=== PATIENT | female | born 1985 | race Caucasian/White ===

== ENCOUNTER 2018-10-28 19:16 | Emergency (ER) | payer MEDICAID ==
[2018-10-28 20:15] VITALS: BMI 39.1
--- NOTE | 2018-10-28 21:01 | OBHP ---
Datetime: 10/28/2018 20:23 IP Adm Impression: Term, intrauterine IP Chief Complaint Other: Pelvic pain IP Admit Plan: Observation/Evaluation; Discharge home Admit Comment, IP Provider: 32 yo f 38.1 wk present to DOC due to pelvic pain and vaginal p ain that started 3 days ago. Pt state that she feel there is some discharge coming out but cant appre ciate any smell, denies vaginal bleed or watergush. Otherwise patient OBGYN is in [place] and not oropeza re if she is returning back and wish to stay here to deliver the baby. Pt state last time she saw her doctor he state that she had uncontrolled glucose but she never followed up for next visit. Otherwis e patient had no complication during this Allergy Shellfish PCP: PMH None PSH None FH: denies any disease OBGYN: 1nvd, 1 miscarriage Social denies smoke ETOH or drug use 20:41 Assessment and plan 32 yo f 38.1 wk present to DOC due to pelvic pain and vaginal pain that started 3 days ag o. No actue distress FHR reactive Abd very distended possible oversized baby vag exam + for white cheese cuttage like discharge, there is scarring around vaginal area, possibl e due to irritation due to scrubbing. Plan GBS U/S for estimated weight Send consent for record release Discussed with Dr. Lorrie Gambino PGY1 OB Hospitalist Addendum: 32 yo at 38+1 wks w/ EDC 11/10/2017 per pt who received care in [place], last appoint in beginning of 09/2018, reports that she had an elevated 1 hr glucola and never had 3 hr GTT done. Pt reports that she has gained about 70 lbs w/ this preg. Pt doesn't have her records from [place]. Pt reports that her first baby was about 6# and this baby feels much bigger. On exam; pt appears comfortable in bed, abd: large (baby seems large) GBS done. VE: intracr ural rash present, appears meng w/ small red blebs, spec: yellow curdled d/c. Pt signed authorizatio n for release of records. Pt given rx'd glucose monitor, lancets, strips and told to check her sugars and to return on Fri., 10/30/2018 for NSTand to review her sugars. Pt also sent for EFW. Explained the importance of f/u care. Rec that she check her sugars and f/u. Explained that a c/s may be recommended if the baby is very large. Pt rx'd mycolog ointment for vulvar rash and rec that she use 7 day Monistat for vaginal yeast infxn. (ES) Pelvic Type - PN: Not Done Extremities - PN: Normal Abdomen - PN: Normal Back - PN: Normal Breast - PN: Not Done Lungs - PN: Normal Heart - PN: Normal Thyroid - PN: Normal Neurologic - PN: Normal HEENT - PN: Normal General - PN: Normal FHR - Baseline A Provider: 150 Gestation - Est Wks by US: 38.1 Vital Signs Provider: Reviewed; Within Normal Limits NICHD Variability Prov Fetus A: Moderate 6-25bpm NICHD Accel Fetus A IP Provider: 15X15 FHR Category Provider Fetus A: Category I Genitourinary Exam: Normal DTRs - PN: Normal
[2018-10-29 02:13] VITALS: BP 117/86; PULSE 123; TEMP 98.1
--- NOTE | 2018-10-29 11:37 | US ---
Date of service: 10/28/2018 PROCEDURE: OB Pelvic Ultrasound HISTORY: estimated weight and presentation LMP: 02/03/2018 COMPARISON: None available. FINDINGS: UTERUS: Gestational sac: Single intrauterine fetus in cephalic presentation. BPD: 9.38 cm corresponding to 38 weeks and 1 day of gestational age HC: 33.99 cm corresponding to 39 weeks and 1 day of gestational age. AC: 35.09 cm corresponding to 39 weeks and 0 day of gestational age. FL: 7.27 cm corresponding to 37 weeks and 2 days of gestational age. Heart rate: 168 bpm. age (Ultrasound estimated): 38 weeks and 3 days of gestational age. Lisa-gestational hemorrhage: None. Date of delivery (Ultrasound estimated) : 11/08/2018 The estimated weight is 3517 grams +/- 527.5 2 grams. Placenta is anterior. CERVIX: Measures 4.3 cm. Long and closed. No cervical abnormality seen. RIGHT OVARY: Not visualized. LEFT OVARY: Not visualized. FREE FLUID: None. OTHER FINDINGS: None. IMPRESSION: Single live intrauterine fetus in cephalic presentation with mean gestational age of 38 weeks and 3 days. The estimated date of delivery by ultrasound is 11/08/2018. The ultrasound dates correspond with the clinical dates. The estimated weight is 3517 grams +/- 527.5 2 grams.
== END 2018-10-28 21:15 | disposition home or self-care (01) ==
LOC: H.EROB2 19:16
DX: O26.93 Pregnancy related conditions, unspecified, third trimester (principal); R10.2 Pelvic and perineal pain; Z3A.38 38 weeks gestation of pregnancy

== ENCOUNTER 2018-10-30 07:38 | Inpatient (IN) | payer MEDICAID ==
[2018-10-30 08:40] VITALS: BMI 37.8
--- NOTE | 2018-10-30 11:23 | US ---
Date of service: 10/30/2018 PROCEDURE: Limited obstetrical ultrasound examination and biophysical profile HISTORY: Noncompliant with prental care COMPARISON: 10/28/2018 TECHNIQUE: Transabdominal FINDINGS: There is a single live intrauterine gestation. presentation was not described at this time the heart rate is 154 beats per minute. A normal quantity of amniotic fluid is visualized. The BASILIO is 18.47 cm. A normal anterior placenta is identified. There is no evidence of placenta previa. The cervix is closed and measures 4.4 cm in length. biometry yields a gestational age by ultrasound of 37 weeks 4 days. The BERNARDO by ultrasound is 11/16/2018. The EFW is 3263 g. anatomy was not evaluated at this time. Limited biophysical profile examination yields a score of 8 out of 8. IMPRESSION: Single live intrauterine gestation of approximately 37 weeks 4 days. Anterior placenta. No previa. Cervix long and closed. Normal amniotic fluid volume. heart rate 154. Biophysical profile score 8 out of 8. EFW 3263 g.
[2018-10-30] MEDS: Lactated Ringer's 1,000 ML IV SCH ×2 (16:45→20:10)
--- NOTE | 2018-10-30 17:18 | OBADHP ---
Datetime: 10/30/2018 17:12 Admit Comment, IP Provider: 32 yo at 38+3 wks w/ EDC 11/10/2018 by LMP, c/w u/s who returns to DOC for NST/ BPP, has not see OB in [facility] 10/01/2018, had an elevated 1 hr glucola 162 on 09/08/2018. Pt never had a 3 hr GTT and never checked her sugars. Pt denies VALDES, vision changes, upper abdominal pain, and nausea/ vomiting. 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 Ling who recommended delivery. Wi ll start induction w/ cervidil. BP's mildly elevated. PT denies sx PEC. CBC, CMP and UA ordered. GBS still pending from 10/28/2018. FHT overall reassuring. Extremities - PN: Normal Abdomen - PN: Normal Back - PN: Normal Lungs - PN: Normal Heart - PN: Normal Neurologic - PN: Normal General - PN: Normal FHR - Baseline A Provider: 150's Membranes, Provider: Intact Contraction Comments Provider: None Vital Signs Provider: Reviewed IP Chief Complaint: evaluation NICHD Variability Prov Fetus A: Moderate 6-25bpm NICHD Accel Fetus A IP Provider: [id number] FHR Category Provider Fetus A: Category I NICHD Decel Fetus A IP Provider: None Dilatation, Provider: 0 Effacement, Provider: 0 Station, Provider: -3 Genitourinary Exam: Normal DTRs - PN: Normal EGA AdmitDate IP: 38.3 IP Adm Impression: Term, intrauterine IP Admit Plan: Admit to unit; Initiate labor induction protocol Datetime: 10/28/2018 20:23 IP Chief Complaint Other: Pelvic pain Pelvic Type - PN: Not Done Breast - PN: Not Done Thyroid - PN: Normal HEENT - PN: Normal Gestation - Est Wks by US: 38.1
[2018-10-30 17:35] LABS: ALB/GLOB RATIO 1.1 (1.0-2.1); ALBUMIN 3.6 g/dL (3.5-5.0); ALT/SGPT 17 U/L (9-52); AST/SGOT 21 U/L (14-36); BLOOD UREA NITROGEN 9 mg/dl (7-17); CALCIUM 9.2 mg/dL (8.4-10.2); GFR NON-AFRICAN AMERICAN > 60
[2018-10-30 17:40] LABS: BASO % 0.3 % (0.0-2.0); EOS # 0.1 K/uL (0.0-0.7); HEMOGLOBIN 11.2 g/dL (12.0-16.0); LYMPH % 18.9 % (20.0-40.0); MEAN CELL VOLUME 92.1 fl (81.0-99.0); MEAN CORPUSCULAR HEMOGLOBIN 30.4 pg (27.0-31.0); MEAN PLATELET VOLUME 11.3 fl (7.2-11.7); MONO # 0.7 K/uL (0.0-0.8); MONO % 6.5 % (0.0-10.0); NEUT # 7.8 K/uL (1.8-7.0); NEUT % 73.3 % (50.0-75.0); RBC 3.7 Mil/uL (3.80-5.20); RED CELL DISTRIBUTION WIDTH 15.3 % (11.5-14.5); WHITE BLOOD COUNT 10.7 K/uL (4.8-10.8)
[2018-10-30 20:36] LABS: SQUAMOUS EPITHIAL 5 /hpf (0-5); URINE BACTERIA OCC (<OCC); URINE BILIRUBIN NEGATIVE (NEGATIVE); URINE BLOOD NEGATIVE (NEGATIVE); URINE CLARITY CLOUDY (Clear); URINE COLOR YELLOW (YELLOW); URINE GLUCOSE (UA) 150 mg/dL (NEGATIVE); URINE PROTEIN NEGATIVE (NEGATIVE); URINE UROBILINOGEN 0.2-1.0 mg/dL (0.2-1.0)
[2018-10-30 20:45] LABS: URINE LEUKOCYTE ESTERASE MODERATE Leu/uL (Negative)
[2018-10-30] MEDS ORDERED: Nalbuphine HCL 10 mg/ml Ampule IVP PRN (21:21)
[2018-10-30] MEDS ORDERED: Promethazine 25 MG in Sodium Chloride 0.9% 50 ML IVPB ONE (21:22)
[2018-10-30] MEDS ORDERED: Nalbuphine 20 mg/ml Inj (10 ml) ONE (21:30)
[2018-10-31] MEDS: Mycolog II OINT TOP SCH ×2 (09:29→17:32)
--- NOTE | 2018-10-31 09:30 | OBPN ---
Datetime: 10/31/2018 06:44 IP Progress Impression: Normal progression of labor IP Informed Consent Obtain: Vaginal Delivery IP Progress Plan: Continue present management FHR - Baseline A Provider: 160 Gestation - Est Wks by US: 38.4 IP Progress Note Comment: 38.4wk s/p cervedil at 18:00 10/30/18 and removed at 21:00 10/30/18 d ue to tacky- systole and recieved 1L IV FLuid. Otherwise patient had no complaint she sleept all nigh t. Pt otherwise denies any chest pain, sob, abd pain, or any other symptoms. Physical exam:cervix closed Assessment and plan 38.4wk s/p cervidel removed due to tacky-systole. PT is not acute distress Will insert Cytotec vag Discussed with Dr Harmony Gambino PGY1 Patient was seen and examined with resident and I agree with the above. Vital Signs Provider: Reviewed; Within Normal Limits Dilatation, Provider: 1 Datetime: 10/30/2018 17:12 Membranes, Provider: Intact Contraction Comments Provider: None NICHD Accel Fetus A IP Provider: [id number] FHR Category Provider Fetus A: Category I NICHD Variability Prov Fetus A: Moderate 6-25bpm Effacement, Provider: 0 Station, Provider: -3 NICHD Decel Fetus A IP Provider: None
[2018-10-31] MEDS ORDERED: Oxytocin 30 UNIT 30 UNITS/500 ML BAG IV ONE (12:19)
[2018-10-31] MEDS: Lactated Ringer's 1,000 ML IV SCH ×3 (12:20→21:59)
[2018-10-31] MEDS ORDERED: OXYTOCIN/0.9 % NS 20 UNIT/1,000 ML BAG IV SCH (12:30)
--- NOTE | 2018-10-31 19:36 | OBPN ---
Datetime: 10/31/2018 19:20 IP Progress Impression: Reassuring heart rate IP Procedures: Sterile Vag Exam IP Progress Plan: Continue present management; Induction Membranes, Provider: Intact Contraction Comments Provider: irregular FHR - Baseline A Provider: 150 Gestation - Est Wks by US: 38.4 Presentation-Admit: Vertex IP Progress Note Comment: patient reports that she has been having some intermittent contractions. pain is currently tolerable Assessment: IUP @ 38.4weeks being induced S/P cytotec , removed for tachysystole with FHR changes Cytotec started today, S/P vaginal cytotec 25mcg X2 Reaasuroing maternal status. Plan: Continue cervical ripening with cytotec. Monitor for the onset and progress of labor. Vital Signs Provider: Reviewed; Within Normal Limits NICHD Accel Fetus A IP Provider: 15X15 FHR Category Provider Fetus A: Category I NICHD Variability Prov Fetus A: Moderate 6-25bpm Dilatation, Provider: FT Effacement, Provider: 30 Station, Provider: -3 NICHD Decel Fetus A IP Provider: None
[2018-10-31] MEDS ORDERED: Fentanyl/Bupivacaine HCl 250 ML EPI ONE (19:48)
--- NOTE | 2018-11-01 02:03 | OBPN ---
Datetime: 11/01/2018 01:58 IP Progress Impression Other: intermittent pelvic pressure IP Progress Plan: Induction IP Progress Note Comment: IUP at 38.5 weeks IOL S/P cytotec #3Plan Continue cervical ripening with cytotec po. Monitor the progress of labor. Vital Signs Provider: Reviewed
[2018-11-01] MEDS: Lactated Ringer's 1,000 ML IV SCH (05:43)
[2018-11-01] MEDS ORDERED: ceFAZolin IV 1 gm in Dextrose 1 GM/50 ML BAG IVPB ONE (08:04)
[2018-11-01] MEDS ORDERED: Oxytocin 30 UNIT 30 UNITS/500 ML BAG IV ONE (08:30)
[2018-11-01] MEDS: Mycolog II OINT TOP SCH (09:09)
--- NOTE | 2018-11-01 10:29 | OBPN ---
Datetime: 11/01/2018 07:04 Membranes, Provider: Intact Contraction Comments Provider: Irregular FHR - Baseline A Provider: 150 Gestation - Est Wks by US: 38.5 Presentation-Admit: Vertex IP Progress Note Comment: Patient was seen and evaluated this morning Patient is s/p cervidil which was removed after development of tachysystole with FHR changes. She was restarted on cytotec intravaginal and po X 5 doses. Patient has not had the cervix ripened and cannot feel any contractions. SVE this morning: FT/40/-3 FHR- periods of minimal variability and moderate variabilities and occasional subtle late decels. In view of the above findings, with Periods of nonreactive FHR Tracing and being remote from [facility], a delivery for NRFHR was recommended for the patient. The implications of holding on without delivery of the baby including the possible effects o f low score with cerebral palsy and demise were discussed. Patient reported that she wouldnt make any decision until her mother comes to the hospital. When her mother arrived, the above discussion was repeated repeating the current and recommendatio n to proceed with delivery. Patient in the presence of the mother reported that she is not ready to pu rsue the recommended procedure. She also reported that she would rather want to discharge herself fro m the hospital so she can go and see her OB doctor in [place]. Possible complications for signing herself out were discussed depicting the possible complications mentioned previously. The nursing [employer] supervisor, Nandini Ga, was notified and she came in to have a discourse with t he patient. Patient still insisted to leave the unit despite all the counseling and she signed an AMA form. She was given labor instructions and was given the option to return if she changes her mind. Contact details for this unit was given to the patient if she needed to call. She was asked to make sure she sees her doctor today for further care. NICHD Accel Fetus A IP Provider: 10X10 FHR Category Provider Fetus A: Category II NICHD Variability Prov Fetus A: Minimal - Undetectable to <5bpm Dilatation, Provider: FT Effacement, Provider: 40 Station, Provider: -3 NICHD Decel Fetus A IP Provider: Variable
[2018-11-01 16:37] VITALS: BP 121/78; PULSE 94; RESP 18; TEMP 98.3; O2SAT 100
== END 2018-11-01 10:15 | disposition left against medical advice (07) | DRG 372 ==
LOC: H.EROB2 07:38 → H.EROB 08:07 → H.EROB2 16:26 → H.L&D 16:26
PROVIDERS: ADMIT Obstetrics & Gynecology; ATTEND Obstetrics & Gynecology
PROC: 4A1HXCZ Monitoring of Products of Conception, Cardiac Rate, External Approach (ICD-10-PCS; principal; 2018-10-30)
DX: O24.419 Gestational diabetes mellitus in pregnancy, unspecified control (principal); Z3A.38 38 weeks gestation of pregnancy; Z91.19 Patient's noncompliance with other medical treatment and regimen; O99.344 Other mental disorders complicating childbirth; F31.30 Bipolar disorder, current episode depressed, mild or moderate severity, unspecified